=== PATIENT | female | born 1995 | race African-American/Black ===

== ENCOUNTER 2018-04-10 10:48 | Inpatient (IN) | payer BC ==
[~2018-04-10] VITALS: Ht 167.6 cm; Wt 88.8 kg
[2018-04-10] MEDS ORDERED: LACTATED RINGER'S 1,000 ML IV SCH ×2 (11:03→12:54)
[2018-04-10] MEDS ORDERED: CEFAZOLIN 2 GM/50 ML (PMX) 50 ML IVPB ONE ×2 (11:29→11:32)
[2018-04-10] MEDS ORDERED: CEFAZOLIN 2 GM/50 ML (PMX) 50 ML IVPB SCH (11:30)
[2018-04-10] MEDS ORDERED: CARBOPROST 250 MCG INJ IM PRN ×2 (11:30→13:00)
[2018-04-10] MEDS ORDERED: PREN-93 PO (11:30)
[2018-04-10] MEDS ORDERED: METHYLERGONOVINE 0.2 MG INJ IM PRN ×2 (11:30→13:00)
[2018-04-10] MEDS ORDERED: OXYTOCIN 30 UNITS/LR 500 ML IV PRN ×2 (11:30→13:00)
[2018-04-10] MEDS ORDERED: OXYTOCIN 30 UNITS/LR 500 ML IV SCH ×3 (11:30→15:00)
[2018-04-10] MEDS ORDERED: MISOPROSTOL 200 MCG TAB PR PRN ×2 (11:30→13:00)
[2018-04-10 11:32] VITALS: BP 128/69; PULSE 70; RESP 18; Ht 167.6 cm; Wt 88.8 kg
[2018-04-10] MEDS ORDERED: CITRIC ACID/NA CITRATE 30 ML CUP ONE (11:33)
[2018-04-10] MEDS ORDERED: ALBU90AE INHALATION (11:49)
--- NOTE | 2018-04-10 12:27 | PREAC ---
Date/Time of Note Date/Time of Note DATE: 04/10/18 TIME: 12:26 Anesthesia Eval and Record Evaluation Time Pre-Procedure Interview DATE: 04/10/18 TIME: 12:26 Age 22 Sex female NPO: 8 hrs Preoperative diagnosis active herpes repeat c section Planned procedure c section Past Medical History Past Medical History: Includes Pulm: Asthma Surgery & Anesthesia Issues No known issue Meds Anticoagulation: Yes Beta Luisito within 24 hr: Yes Reason Beta Luisito not given: Pt. not on B-Luisito Reported Medications Albuterol Sulfate (Proair Respiclick) 90 Mcg Aer.pow.ba, 2 PUFFS INHALATION TID PRN for SHORTNESS OF BREATH, BOTTLE 04/10/18 Vit No.124/Iron/FA ( Vitamin Tablet) 1 Each Tablet, 1 EACH PO DAILY, TAB 04/10/18 Current Medications Lactated Ringer's 1,000 ml @ 125 mls/hr Q8H IV Last administered on 04/10/18at 12:02; Admin Dose 125 MLS/HR; Start 04/10/18 at 11:03 Cefazolin Sodium/ Dextrose 50 ml @ 100 mls/hr ONCE IVPB ; Start 04/10/18 at 11:30 Oxytocin/Lactated Ringer's 500 ml @ 125 mls/hr POST IV ; Start 04/10/18 at 11:30 Oxytocin/Lactated Ringer's 500 ml @ 0 mls/hr ONCE PRN IV VAGINAL BLEEDING; Start 04/10/18 at 11:30 Methylergonovine Maleate (Methergine) 0.2 mg ONCE PRN IM VAGINAL BLEEDING; Start 04/10/18 at 11:30 Carboprost Tromethamine (Hemabate) 250 mcg ONCE PRN IM VAGINAL BLEEDING; Start 04/10/18 at 11:30 Misoprostol (Cytotec) 1,000 mcg ONCE PRN MN VAGINAL BLEEDING; Start 04/10/18 at 11:30 Citric Acid/ Sodium Citrate (Bicitra) 30 ml ONCE ONCE PO ; Start 04/10/18 at 12:30; Stop 04/10/18 at 12:31 Meds reviewed: Yes Allergies Coded Allergies: calamine (Verified Allergy, Intermediate, HIVES, 04/10/18) iodine (Verified Allergy, Intermediate, rash, 04/10/18) Allergies Reviewed: Yes Labs/Studies Labs Reviewed: Reviewed by anesthesiologist Result Diagram: 04/10/18 1126 Laboratory Tests 04/10/18 11:26 Blood Bank Test 04/10/18 11:26 Antibody Screen NEGATIVE Blood Type O POSITIVE Rh Immune Globulin Candidate NO test: Positive Studies: ECG (n/a), CXR (n./a) Pre-procedure Exam Last vitals Vital Signs Date Temp Pulse Resp B/P (MAP) Pulse Ox O2 O2 Flow FiO2 Time Delivery Rate 04/10/18 98.3 70 18 128/69 Room Air 11:32 (88) Airway: Adequate mouth opening Mallampati: Mallampati I Teeth: Normal Lung: Normal Heart: Normal ASA Physical Status ASA physical status: 2 Emergency: None Planned Anesthetic Neuraxial: Spinal Planned Pain Management Sub-arachniod narcotics Pre-operative Attestations Prior to commencing anesthesia and surgery, the patient was re-evaluated, there was verification of: *The patient's identity *The results of appropriate recent lab work and preoperative vital signs *The above evaluation not changing prior to induction *Anesthetic plan, risk benefits, alternative and complications discussed with patient/family; questions answered; patient/family understands, accepts and wishes to proceed. NAOMI DEE MD Apr 10, 2018 12:27
[2018-04-10] MEDS ORDERED: CITRIC ACID/NA CITRATE 30 ML CUP PO ONE (12:30)
[2018-04-10] MEDS ORDERED: ONDANSETRON 4 MG INJ ONE (12:37)
[2018-04-10] MEDS ORDERED: GLYCOPYRROLATE 0.4 MG INJ ONE (12:37)
[2018-04-10] MEDS ORDERED: morphine SULFATE/PF (10 MG/10 ML) INJ ONE (12:37)
[2018-04-10] MEDS ORDERED: OXYTOCIN 30 UNITS/LR 500 ML IV ONE ×2 (12:52→13:47)
[2018-04-10] MEDS ORDERED: METOCLOPRAMIDE 10 MG INJ ONE (12:52)
[2018-04-10] MEDS ORDERED: FENTAnyl 50 MCG/ML VIAL ONE (12:54)
[2018-04-10] MEDS ORDERED: METHYLERGONOVINE 0.2 MG TAB PO PRN (13:00)
[2018-04-10] MEDS: CEFAZOLIN 2 GM/50 ML (PMX) 50 ML IVPB SCH ×2 (13:00→21:10)
[2018-04-10] MEDS ORDERED: LANOLIN HPA 1 PKT TOP PRN (13:00)
[2018-04-10] MEDS ORDERED: NA PHOSPHATE/BIPHOS 133 ML ENEMA PR PRN (13:00)
[2018-04-10] MEDS ORDERED: HYDROCODONE/APAP (5/325) TAB PO PRN ×2 (13:00)
--- NOTE | 2018-04-10 13:01 | PREOPHP ---
DATE OF ADMISSION: 04/10/2018 HISTORY OF PRESENT ILLNESS: This is a 22-year-old female, 1, para 0, patient with an EDC of 05/05/2018, with a history of herpes type 2 and a recent outbreak and no treatment with acyclovir yet because of the patient is 36 weeks . PAST MEDICAL HISTORY: Otherwise, was a gallbladder removal and no other history of surgeries. She h ad a history of asthma on albuterol. Otherwise, she had no other antecedents. FAMILY HISTORY: Noncontributory. PHYSICAL EXAMINATION: VITAL SIGNS: She is afebrile, and pulse is 80, respirations 16, and normal blood pressure 120/80. HEAD AND NECK: Normal. CHEST: Clear. HEART: Normal sinus rhythm. LUNGS: Clear. BREASTS: Soft, nontender, no masses. ABDOMEN: Soft. Uterus at term with uterine contractions and normal heart tones. PELVIC: At this time, was not done due to the fact that she is having an ongoing recovering herpes t ype 2 with rupture of membranes. EXTREMITIES: Normal with normal pulses, normal reflexes and no edema. Her past history otherwise is for asthma, gallbladder surgery and herpes type 2. No history of drugs . ALLERGIES: NO HISTORY OF ALLERGIES. SOCIAL HISTORY: No history of drinking or smoking. The patient has been advised for an emergency . She has been advised of the possible risks and possible complications of the procedure with her alternatives and options. Written information w as provided. She had no more questions and agreed to go ahead with the procedure with full understan ding and no more questions. Dictated By: JUAN CALDWELL/BEREKET Conf#: [id number] DID#: [id number]
[2018-04-10] MEDS ORDERED: KETOROLAC 30 MG INJ ONE (13:43)
--- NOTE | 2018-04-10 15:03 | SIPON ---
Date/Time of Note Date/Time of Note DATE: 04/10/18 TIME: 15:01 Operative Report Preoperative Diagnosis 36 weeks Spontaneous rupture of membranes Acute herpes type II genitalia Postoperative Diagnosis Same plus baby girl 9 Operation/Procedure Performed Jess LoW segment transverse section Surgeon see signature line assistant librarian Dr. Ramesh Anesthesia: spinal Estimated blood loss: other Transfusion Required none Specimen Placenta Grafts/Implants none Complications none JUAN DESAI MD Apr 10, 2018 15:02
--- NOTE | 2018-04-10 15:26 | PAC ---
Date/Time of Note Date/Time of Note DATE: 04/10/18 TIME: 15:26 Post-Anesthesia Notes Post-Anesthesia Note Last documented vital signs Vital Signs Date Temp Pulse Resp B/P (MAP) Pulse Ox O2 O2 Flow FiO2 Time Delivery Rate 04/10/18 98.3 70 18 128/69 99 Room Air 11:32 (88) Activity: WNL Respiratory function: WNL Cardiovascular function: WNL Mental status: Baseline Pain reasonably controlled: Yes Hydration appropriate: Yes Nausea/Vomiting absent: No NAOMI DEE MD Apr 10, 2018 15:26
[2018-04-10] MEDS ORDERED: KETOROLAC 30 MG INJ IV PRN (15:30)
[2018-04-10] MEDS ORDERED: NALOXONE (0.4 MG/ML) INJ IV PRN (15:30)
[2018-04-10] MEDS ORDERED: ONDANSETRON 4 MG INJ IV PRN ×2 (15:30)
[2018-04-10] MEDS ORDERED: morphine (1 MG/ML) 10ML SYRINGE IV PRN ×3 (15:30)
[2018-04-10] MEDS ORDERED: DIPHENHYDRAMINE 50 MG INJ IV PRN ×2 (15:30)
[2018-04-10] MEDS ORDERED: morphine 2 MG INJ IV PRN ×3 (15:30)
--- NOTE | 2018-04-10 17:15 | OPR ---
DATE OF OPERATION: 04/10/2018 OPERATION PERFORMED: Primary low segment transverse section. PREOPERATIVE DIAGNOSES: 1. A 36 weeks' 2. Spontaneous rupture of membranes. 3. Acute herpes type 2. POSTOPERATIVE DIAGNOSES: 1. A 36 weeks' 2. Spontaneous rupture of membranes. 3. Acute herpes type 2. SURGEON: Juan Kelly MD PERSONNEL CLERK: Ranjit Ramesh MD ANESTHESIOLOGIST: Liliana Almonte MD ANESTHESIA: Spinal. PROCEDURE IN DETAILS: The patient was given a spinal anesthesia, placed in the supine position. The abdomen was prepped and draped and a Nayak catheter has been on the bladder. A transverse incision was made 2 cm up the pubic bone for about 10 cm in length. The abdominal cavity was reached. The lo wer uterine segment was identified and then an Moncho retractor was placed in. The incision was made of the bladder and bladder flap was made. The uterus was opened in the midline with a scalpel. The incision was increased laterally on either side for about 3 inches. The baby's head was delivered f ollowed by the body. There was a baby girl, 9. 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 The cord blood was obtained. The placenta was removed. The c ervix was opened. The uterus contracted and closed in 2 layers with PDS looped suture, imbedding the first line of suture. Hemostasis was good. Tubes and ovaries were normal. The abdominal cavity wa s cleaned out and closed with a 2-0 Vicryl suture for peritoneum, 0 PDS looped suture for the fascia, 2-0 Vicryl for the subcutaneous tissue, 3-0 Monocryl subcuticular to the skin. Steri-Strips were ap plied on top of Dermabond. The patient tolerated the procedure well and left the OR awake and stable . Sponge counts and instrument counts were correct. Intravenous antibiotics were given for prophyla xis. Blood loss was about 600 mL. The urine was clear at the end of the procedure. Dictated By: JUAN CALDWELL/NTS Conf#: [id number] DID#: [id number]
[2018-04-10 17:20] VITALS: BP 125/68; PULSE 86; RESP 18
[2018-04-10] MEDS: OXYTOCIN 30 UNITS/LR 500 ML IV SCH ×2 (17:20→21:13)
[2018-04-10] MEDS: IBUPROFEN 800 MG TAB PO SCH ×2 (17:57→22:00)
[2018-04-10] MEDS: ACYCLOVIR 400 MG TAB PO SCH (18:00)
[2018-04-10 18:20] VITALS: BP 120/60; PULSE 86; RESP 18
[2018-04-10 20:00] VITALS: BP 118/61; PULSE 89; RESP 19
[2018-04-10] MEDS: KETOROLAC 30 MG INJ IV PRN (20:35)
[2018-04-10] MEDS: SENNA/DOCUSATE NA (8.6MG/50MG) TAB PO SCH (21:10)
[2018-04-11] MEDS: ACYCLOVIR 400 MG TAB PO SCH ×4 (00:28→23:58)
[2018-04-11] MEDS: KETOROLAC 30 MG INJ IV PRN ×4 (03:09→23:59)
[2018-04-11 04:00] VITALS: BP 107/83; PULSE 89; RESP 19
[2018-04-11] MEDS ORDERED: LACTATED RINGER'S 1,000 ML IV SCH (05:00)
[2018-04-11] MEDS: CEFAZOLIN 2 GM/50 ML (PMX) 50 ML IVPB SCH (05:04)
[2018-04-11] MEDS: IBUPROFEN 800 MG TAB PO SCH ×3 (06:00→21:58)
--- NOTE | 2018-04-11 06:25 | NUR ---
eoss.stable.no respiratory distress. scanty to moderate lochia.oral fluids tolerated well .due meds given with no adverse reactions.bonding well with baby.fob @ bedside
--- NOTE | 2018-04-11 07:38 | OPPN ---
Date/Time of Note Date/Time of Note DATE: 04/11/18 TIME: 07:38 Anesthesia Follow up Anesthesia Follow up Last documented vital signs Vital Signs Date Temp Pulse Resp B/P (MAP) Pulse Ox O2 O2 Flow FiO2 Time Delivery Rate 04/11/18 98.8 89 19 107/83 Room Air 04:00 (91) 04/10/18 98 18:20 Respiratory function: WNL Cardiovascular function: WNL Comments A 22 year female s/pduramorph for post op pain POD#1 is doing fine. No headache, N/V, itching, neural deficit, pain. NAOMI DEE MD Apr 11, 2018 07:38
[2018-04-11 07:55] VITALS: BP 124/62; PULSE 84; RESP 20
[2018-04-11] MEDS: SENNA/DOCUSATE NA (8.6MG/50MG) TAB PO SCH ×2 (08:55→21:57)
[2018-04-11] MEDS ORDERED: INFLUENZA VIRUS VACCINE 0.5 ML (DISPENSING) IM* ONE (09:00)
--- NOTE | 2018-04-11 10:21 | PN ---
Date/Time of Note Date/Time of Note DATE: 04/11/18 TIME: 10:20 Assessment/Plan Lines/Catheters IV Catheter Type (from Nrsg): Peripheral IV Subjective 24 Hr Interval Summary Day 1 post section Afebrile, doing well, not up yet, pain is controlled Incision is dry CBC within the normal with low H&H but as symptomatic Encouraged ambulation Constitutional: no complaints, improved, ambulates, BM, flatus, urine output Feeding: advancing diet Pain Control: well controlled Detailed Summary Eyes: no complaints ENT: no complaints Respiratory: no complaints Cardiovascular: no complaints Gastrointestinal: no complaints Genitourinary: no complaints Musculoskeletal: no complaints Skin: no complaints Neurologic: no complaints Endocrine: no complaints Lymphatic: no complaints Psychological: no complaints, nl mood/affect Immunologic: no complaints Exam/Review of Systems Vital Signs Vitals Vital Signs Date Temp Pulse Resp B/P (MAP) Pulse Ox O2 O2 Flow FiO2 Time Delivery Rate 04/11/18 98.8 89 19 107/83 Room Air 04:00 (91) 04/10/18 98 18:20 Intake and Output 04/10/18 04/10/18 04/11/18 1515:00 23:00 07:00 IntakeIntake Total 1000 ml 825 ml 1023 ml OutputOutput Total 600 ml 200 ml 950 ml BalanceBalance 400 ml 625 ml 73 ml Exam Constitutional: alert, oriented, well developed Psych: no complaints, nl mood/affect Head: normocephalic, atraumatic Eyes: nl conjunctiva, EOMI, nl lids, nl sclera ENMT: nl external ears & nose, nl lips & teeth, nl nasal mucosa & septum, mucosa pink and moist Neck: supple, non-tender Respiratory: clear to auscultation, normal air movement Cardiovascular: regular rate and rhythm, nl pulses Gastrointestinal: soft, nl liver, spleen, non-tender Musculoskeletal: nl extremities to inspection, nl gait and stance Extremities: normal pulses Neurological: 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
[2018-04-11 12:05] VITALS: BP 123/69; PULSE 90; RESP 18
[2018-04-11 16:10] VITALS: BP 120/76; PULSE 83; RESP 20
--- NOTE | 2018-04-11 17:56 | NUR ---
EOSS; BONDING WELL. VOIDING, PASSING FLATUS, AMBULATING, ATTEMPTING TO BREAST FEED BUT BABY WILL NOT LATCH DUE TO TOO SLEEPY.
[2018-04-11 20:00] VITALS: BP 105/64; PULSE 78; RESP 20
[2018-04-12 04:14] VITALS: BP 110/67; PULSE 72; RESP 20
--- NOTE | 2018-04-12 04:16 | NUR ---
EOSS NO DISTRESS, NEEDS ATTENDED TO MADE COMFORTABLE
[2018-04-12] MEDS: ACYCLOVIR 400 MG TAB PO SCH ×4 (05:32→23:46)
[2018-04-12] MEDS: IBUPROFEN 800 MG TAB PO SCH ×3 (05:33→21:57)
--- NOTE | 2018-04-12 08:24 | NUR ---
RN AT BEDSIDE AND PT. PAIN IS 3/10 AND ACCEPTABLE. POC DISCUSSED. NOTIFIED NEED FOR CONSULT. BLEEDING SMALL BROWNISH LOCHIA NON ODOROUS. FOB AT BEDSIDE.
[2018-04-12 08:45] VITALS: BP 127/70; PULSE 89; RESP 18
[2018-04-12] MEDS: SENNA/DOCUSATE NA (8.6MG/50MG) TAB PO SCH ×2 (10:05→21:00)
--- NOTE | 2018-04-12 11:21 | QN ---
Documentation Comment POD#2 is stable No VB +Flatus +Voids VS stable Gen NAD Abd soft NT ND Incision intact Genitalia No blood at perineum --->Ambulation MANDY UMAÑA M.D. Apr 12, 2018 11:21
[2018-04-12 16:05] VITALS: BP 117/77; PULSE 117; RESP 20
--- NOTE | 2018-04-12 17:55 | NUR ---
EOSS:ambulating.had bm.bonding well with baby.
[2018-04-12 20:00] VITALS: BP 118/64; PULSE 72; RESP 20
[2018-04-13 04:23] VITALS: BP 111/64; PULSE 70; RESP 20
--- NOTE | 2018-04-13 04:27 | NUR ---
EOSSNO DISTRESS, COPING WELL, LOOKING FORWARD TO GOING HOME TODAY
[2018-04-13] MEDS: ACYCLOVIR 400 MG TAB PO SCH ×2 (05:25→13:14)
[2018-04-13] MEDS: IBUPROFEN 800 MG TAB PO SCH (05:25)
[2018-04-13 08:00] VITALS: BP 120/72; PULSE 88; RESP 20
[2018-04-13] MEDS: SENNA/DOCUSATE NA (8.6MG/50MG) TAB PO SCH (09:00)
[2018-04-13] MEDS ORDERED: MEASLES,MUMPS,RUBELLA VACCINE INJ SC* ONE (09:00)
[2018-04-13] MEDS ORDERED: DIPHTH/TET/ACEL PERTUSS (ADULT) 0.5 ML VIAL IM* ONE (09:00)
--- NOTE | 2018-04-13 12:08 | DS ---
Date/Time of Note Date/Time of Note DATE: 04/13/18 TIME: 12:03 Discharge Summary Admission/Discharge Info Admit Date/Time Apr 10, 2018 at 10:55 Discharge Date/Time April 13, 2018 Third day post due to active herpes Discharge Diagnosis Primary low segment transverse section Acute herpes type II genitalia Patient Condition: Good Procedures Primary low segment transverse section Hx of Present Illness 22 years old female primigravida who had care in my office with a history of type II genitalia herpes with frequent flareups. The patient had a recent flareup when she had rupture the water bag spontaneously. The primary section was scheduled immediately Hospital Course She did very good after the ,she was ambulatory, she was tolerating diet ,she had bowel movement ,she had a clean incision and she was afebrile and her laboratory testing shows anemia but she was asymptomatic. She was discharged home on her third day with instructions of what to do and not to do and see me in the office in a week. She was given Tylenol 3 and ibuprofen as needed pain She looks very happy to go home. She was instructed to see me at any time or in 1 week in the office Home Meds Reported Medications Albuterol Sulfate (Proair Respiclick) 90 Mcg Aer.pow.ba, 2 PUFFS INHALATION TID PRN for SHORTNESS OF BREATH, BOTTLE 04/10/18 Vit No.124/Iron/FA ( Vitamin Tablet) 1 Each Tablet, 1 EACH PO DAILY, TAB 04/10/18 Follow-up Plan 1 week Primary Care Provider Not On Staff Doctor Time spent on discharge: < 30 minutes JUAN DESAI MD Apr 13, 2018 12:08
--- NOTE | 2018-04-13 12:09 | PD.PPDC ---
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 Condition [id number] Patient Condition: Ipikp6s Good Diet [id number] Diet: Volvx9t Resume Regular Diet Activity/Restrictions [id number] Activity: Ezrmu5g Normal Activity May Shower [id number] Restrictions: Kbtah3f No Exercising No Lifting No Driving No Sexual Activity Nothing in the Vagina No [place] No Tampons, douche Wound/Drain Care Instructions [id number] Wound/Drain Care [id number] Remove Steri Strips in 1 week Instructions: Wash with soap and water Keep clean and dry Follow-up Follow-up with Physician: 1, Week/Weeks Return to clinic for [id number] [employer] Instructions: Hlsng8z Fever greater than 101 Chills Worsening abdominal pain Excessive Vaginal Bleeding More than 2 pads per hour Unable to tolerate diet [id number] OB Instructions: Rhrzd8j Breast Tenderness Depression Blurried Vision Headache [id number] Surgical Instructions: [id number] Incisional Drainage Incisional Redness JUAN DESAI MD Apr 13, 2018 12:09
--- NOTE | 2018-04-13 16:20 | NUR ---
DISCHARGE TEACHING COMPLETED FOR MOM, BABY WILL REMAIN IN NICE. REVIEWED PAIN MEDS AND PRESCRIPTIONS. REVIEWED INCISION AND WOUND CARE. SUPPLIES GIVEN FOR BREAST PUMPING ALONG WITH LABELS. MOM AND DAD VERBELIZED UNDERSTANDING OF ALL TEACHING. MOM AND DAD WILL KEEP ID BANDS IN PLACE FOR NICU VISITS. MOM WAQS DISCHARGED TO THE NICU IN STABLE CONDITION WITH ALL PERSONAL BELONGINGS IN STABLE CONDITION
== END 2018-04-13 16:20 | disposition home or self-care (01) | DRG 788 ==
LOC: L-D 10:49 → OBT 10:49 → EDSTATUS 10:53 → L-D 10:55 → PP1 17:10
PROVIDERS: ADMIT Obstetrics & Gynecology; ATTEND Obstetrics & Gynecology
PROC: 10D00Z1 Extraction of Products of Conception, Low, Open Approach (ICD-10-PCS; principal; 2018-04-10 13:00)
DX: O98.32 Other infections with a predominantly sexual mode of transmission complicating childbirth (principal); A60.09 Herpesviral infection of other urogenital tract; O42.913 Preterm premature rupture of membranes, unspecified as to length of time between rupture and onset of labor, third trimester; G89.18 Other acute postprocedural pain; Z3A.36 36 weeks gestation of pregnancy; Z37.0 Single live birth; Z23 Encounter for immunization
CPT/HCPCS: 85025; 85610; 85730; 86592; 86850; 86900; 86901; 90686; 99464; J0690; J1885; J2270; J2274; J2405; J2590; J2765; J3010; J7120